=== PATIENT | female | born 1995 | race Caucasian/White ===

== ENCOUNTER 2019-07-25 23:23 | Emergency (ER) | payer BC ==
[~2019-07-25] VITALS: Ht 160 cm; Wt 56.8 kg
[2019-07-25] MEDS ORDERED: AMOXICILLIN 8751 TAB PO (23:32)
[2019-07-25] MEDS ORDERED: MARLISSA 30 MCG1 TAB PO (23:32)
[2019-07-26 00:12] LABS: HEMATOCRIT 44.9 % (37.0-47.0); HEMOGLOBIN 15.4 g/dl (12.5-16.0); MEAN CELL VOLUME 91 fl (80.0-100.0); MEAN CORPUSCULAR HEMOGLOBIN 31 pg (27.0-31.0); MEAN CORPUSCULAR HGB CONC 34 g/dl (33.0-37.0); MEAN PLATELET VOLUME 9.5 fl (7.4-10.4); PLATELET COUNT 143 K/mm3 (130-400); RED BLOOD COUNT 4.93 M/mm3 (4.10-5.30); REDCELL DISTRIBUTION WIDTH-CV 12.6 % (11.5-14.5)
[2019-07-26 00:24] LABS: STREP SCREEN NEGATIVE
[2019-07-26 00:34] LABS: ALBUMIN 4.2 gm/dL (3.5-5.0); BILIRUBIN,TOTAL 0.9 mg/dL (0.0-1.0); CALCIUM 8.8 mg/dL (8.4-10.2); CREATININE, serum 0.66 (0.52-1.25); POTASSIUM 3.7 mmol/L (3.4-5.0); TOTAL PROTEIN 8.1 gm/dL (6.4-8.2)
[2019-07-26 00:56] LABS: MONOSCREEN POSITIVE
[2019-07-26 01:31] VITALS: TEMP 98.3
[2019-07-26 01:48] LABS: BAND 13 % (0-10); LYMPHOCYTE 54 % (20.0-51.0); NEUTROPHILS 19 % (42.0-75.2); PLATELET ESTIMATE NORMAL (NORMAL)
[2019-07-26 02:30] VITALS: BP 117/79; PULSE 97
== END 2019-07-26 02:34 | disposition home or self-care (01) ==
LOC: COL.ER 23:23
PROVIDERS: Nurse Practitioner
DX: B27.90 Infectious mononucleosis, unspecified without complication (principal); Z88.2 Allergy status to sulfonamides
CPT/HCPCS: J1885; J7030